=== PATIENT | female | born 1980 | race Caucasian/White ===

== ENCOUNTER 2022-07-19 13:12 | Emergency (ER) | payer BC ==
[~2022-07-19] VITALS: Ht 162.6 cm; Wt 59.9 kg
[2022-07-19] MEDS ORDERED: LORAZEPAM 0.5 MG TABLET ONE (13:39)
--- NOTE | 2022-07-19 13:43 | NUR ---
Pt seen by . Safety measures in place. Will continue to monitor.
[2022-07-19] MEDS ORDERED: LORAZEPAM 0.5 MG TABLET PO ONE (13:45)
--- NOTE | 2022-07-19 14:00 | NUR ---
IV not given to Pt per Pt's request.
[2022-07-19 14:30] LABS: CARBON DIOXIDE 25 mmol/L (21-32); CHLORIDE 103 mmol/L (98-107); CREATININE 0.8 mg/dL (0.6-1.3); GLUCOSE 107 mg/dL (74-106); POTASSIUM 3.8 mmol/L (3.5-5.1); UREA NITROGEN, BLOOD 10 mg/dL (7-18)
[2022-07-19 14:36] LABS: HEMATOCRIT 38.4 % (31.2-41.9); MEAN CORPUSCULAR HEMOGLOBIN 29.3 uug (24.7-32.8); MEAN CORPUSCULAR VOLUME 89.2 fL (75.5-95.3); PLATELET COUNT (AUTO) 319 K/uL (179-408)
[2022-07-19 15:48] VITALS: BP 135/73
--- NOTE | 2022-07-19 15:48 | NUR ---
Patient discharged to home in stable condition. Written and verbal after care instructions given. Patient verbalizes understanding of instructions. Stressed follow up or return to ER for worsening s/s.
== END 2022-07-19 15:49 | disposition home or self-care (01) ==
LOC: ER 13:12
DX: R00.2 Palpitations (principal); F41.9 Anxiety disorder, unspecified; R07.89 Other chest pain; Z90.89 Acquired absence of other organs; Z88.1 Allergy status to other antibiotic agents
CPT/HCPCS: 36415; 71045; 84443; 84484; 85025; 93005; A4663

== ENCOUNTER 2022-08-25 08:08 | Emergency (ER) | payer BC ==
[~2022-08-25] VITALS: Ht 162.6 cm; Wt 56.2 kg
--- NOTE | 2022-08-25 08:30 | NUR ---
seen and examined by
--- NOTE | 2022-08-25 08:42 | NUR ---
ua collected and sent to lab
[2022-08-25 08:49] LABS: HEMATOCRIT 38.8 % (31.2-41.9); MEAN CORPUSCULAR HEMOGLOBIN 30.1 uug (24.7-32.8); MEAN CORPUSCULAR VOLUME 89.8 fL (75.5-95.3); PLATELET COUNT (AUTO) 295 K/uL (179-408)
[2022-08-25 09:07] LABS: BILIRUBIN,DIRECT 0.1 mg/dL (0.0-0.2); BILIRUBIN,TOTAL 0.7 mg/dL (0.2-1.0); POTASSIUM 3.8 mmol/L (3.5-5.1); TOTAL PROTEIN, SERUM 7.9 g/dL (6.4-8.2)
[2022-08-25 09:10] LABS: *URINE HCG, QUAL NEGATIVE (NEGATIVE)
[2022-08-25 10:21] VITALS: BP 117/75
== END 2022-08-25 10:21 | disposition home or self-care (01) ==
LOC: ER 08:08
DX: K62.5 Hemorrhage of anus and rectum (principal); Z88.1 Allergy status to other antibiotic agents
CPT/HCPCS: 36415; 83690; 84703; 85025; A4663